=== PATIENT | male | born 1980 | race Caucasian/White ===

== ENCOUNTER 2017-09-29 23:12 | Emergency (ER) | END 2017-09-30 02:13 | disposition left against medical advice (07) ==

== ENCOUNTER 2018-08-28 22:24 | Emergency (ER) | payer SELFPAY ==
[~2018-08-28] VITALS: Ht 170.2 cm; Wt 82.1 kg
[2018-08-28 22:27] VITALS: BP 133/76; PULSE 88; RESP 20; Ht 170.2 cm; Wt 82.1 kg
== END 2018-08-28 23:51 | disposition left against medical advice (07) ==
LOC: FTE 22:24
DX: Z53.21 Procedure and treatment not carried out due to patient leaving prior to being seen by health care provider (principal)